=== PATIENT | female | born 1995 | race Caucasian/White ===

== ENCOUNTER 2024-01-25 15:03 | Emergency (ER) | payer BC, SELFPAY ==
[2024-01-25 15:06] VITALS: BP 106/70
--- NOTE | 2024-01-25 16:26 | ED.GENMED ---
History of Present Illness
<Oneida Dotson PA-C - Last Filed: 01/27/24 07:23>
General
Chief Complaint: DVT/Possible Blood Clot
Source: patient
Exam Limitations: none
Time Seen by Provider: 01/25/24 15:38
Nursing documentation reviewed up to this point in time: agreed with
History of Present Illness
History of Present Illness:
Patient is a female at 24 weeks gestation presented to the emergency department with left lower extremity discomfort. Patient reports that she has been dealing with varicose veins in her bilateral lower extremities since 10 weeks in this
. Patient has been following with her CORPORATE SAFETY COORDINATOR who recommended compression stockings. Patient states that over the past few days varicose veins on her left lower extremity have become more 'inflamed 'and lower leg has become more painful.
She has thought she felt some warmth in the area, as well. She did talk to her CORPORATE SAFETY COORDINATOR who recommended she come to the emergency department for an ultrasound to rule out a DVT. Patient denies any chest pain or shortness of breath. No
numbness/tingling in left lower extremity.
Patient denies any personal or family history of blood clots or clotting disorders. thus far has been uncomplicated. No vaginal spotting, loss of fluid, or abdominal cramping.
Past History
<Oneida Dotson PA-C - Last Filed: 01/27/24 07:23>
Past History
ED Past Medical History: None
ED Past Surgical History: None
Social History
Tobacco: Non-smoker
Drug: None
Personal: Single
Employment: Student
Review of Systems
<Oneida Dotson PA-C - Last Filed: 01/27/24 07:23>
Review of Systems
Allergies reviewed?: Yes
All Other Systems: ROS reviewed and negative except as documented in HPI and ROS
Phy Exam
<Oneida Dotson PA-C - Last Filed: 01/27/24 07:23>
Physical Exam
Physical Exam:
Vitals: Patient's vital signs are stable. Afebrile
General: Patient is well appearing, no acute distress
Skin: Warm and dry, no rashes or lesions
Head: Normocephalic, atraumatic
Throat: Protecting airway
Neck: Normal ROM, no cervical spine tenderness
Cardiac: Regular rate and rhythm. Normal heart sounds
Pulm: No apparent respiratory distress. Oxygen saturation 98 on room air. Lungs clear bilaterally.
Abdomen: Gravid abdomen. Nontender.
Extremities: Prominent tender varicose veins of left lower extremity extending from distal calf to mid thigh. Area of most significant tenderness at left lateral proximal calf. No overlying erythema, warmth of left lower extremity. Right lower
extremity with few nontender varicose veins. Negative Homans' sign bilaterally. Bilateral lower extremities neurovascularly intact.
Neuro: Grossly intact
Psychiatric: Normal affect.
Course
<Oneida Dotson PA-C - Last Filed: 01/27/24 07:23>
Orders/Labs/Results
Orders:
Orders
01/25/24 15:09
Periph Venous Lwr Ext Left US [US Periph Venous LOWER Ext LT] Urgent
Comment:
Reason For Exam: ?varicose vein
Vital Signs
Initial and Last Documented VS:
Initial Vital Signs
Temp Pulse Resp BP Pulse Ox
98.6 F 87 18 106/70 98
01/25/24 15:06 01/25/24 15:06 01/25/24 15:06 01/25/24 15:06 01/25/24 15:06
Last Documented Vital Signs
Temp Pulse Resp BP Pulse Ox
98.6 F 87 18 106/70 98
01/25/24 15:06 01/25/24 15:06 01/25/24 15:06 01/25/24 15:06 01/25/24 15:06
<Gee Valdes MD - Last Filed: 01/25/24 19:52>
Orders/Labs/Results
Orders:
Orders
01/25/24 15:09
Periph Venous Lwr Ext Left US [US Periph Venous LOWER Ext LT] Urgent
Comment:
Reason For Exam: ?varicose vein
Vital Signs
Initial and Last Documented VS:
Initial Vital Signs
Temp Pulse Resp BP Pulse Ox
98.6 F 87 18 106/70 98
01/25/24 15:06 01/25/24 15:06 01/25/24 15:06 01/25/24 15:06 01/25/24 15:06
Last Documented Vital Signs
Temp Pulse Resp BP Pulse Ox
98.6 F 87 18 106/70 98
01/25/24 15:06 01/25/24 15:06 01/25/24 15:06 01/25/24 15:06 01/25/24 15:06
<Oneida Dotson PA-C - Last Filed: 01/27/24 07:23>
MDM/Problems Addressed
Differential Diagnosis Includes:
Not limited to: Varicose veins, superficial thrombophlebitis, DVT, etc.
MDM/Problems Addressed:
28-year-old female, at approximately 24 weeks gestation presenting with left lower extremity pain in setting of known varicose veins and concern for possible DVT. Vital stable. Exam as above. Patient does have tender varicose veins of left
lower extremity without any calf tenderness, erythema, warmth. Most notable area at left proximal calf. No palpable cord of left lower extremity. Right lower extremity with few varicose veins. Negative Homans' sign bilaterally. Cardio/pulmonary
assessment unremarkable. An ultrasound was obtained of the left lower extremity which shows no evidence of DVT. However�patent varicose veins of left lower extremity were noted on ultrasound.
Suspect varicose veins progressing secondary to . No evidence of infectious process. No indication for admission. Advised compression stockings, warm compress, elevation when able. Return precautions discussed with patient at length.
Patient will continue to follow with CORPORATE SAFETY COORDINATOR for care. Patient seen with attending physician
Chronic conditions affecting care:
N/A
Acute Exacerbation and/or Progression of Chronic Illness:
N/A
<Oneida Dotson PA-C - Last Filed: 01/27/24 07:23>
*Radiology
Radiology exam reviewed: radiology read reviewed (No evidence of DVT of left lower extremity)
*Pulse Oximetry
Patient hypoxic: no
*EKG
Interpreted by ED Provider?: NA
*Fried Cake Maker Interpretation
Rate: Fried Cake Maker- N/A
*Critical Care Note
Total Time (30-74mins, 75-104mins- exclusive of procedures): Not Applicable
ED Attending Note
<Oneida Dotson PA-C - Last Filed: 01/27/24 07:23>
-
Portions of this chart may have been created with voice recognition software.� Occasional wrong word or��sound alike� substitutions may have occurred due to the inherent limitations of voice recognition software.
<Gee Valdes MD - Last Filed: 01/25/24 19:52>
ED Attending Note
Patient seen and examined by attending physician: Yes
ED Attending Note:
I have seen and evaluated the patient with a [id number] encounter. I have spoken to the advance practicer provider and involved in the medical history, the physical exam, medical decision making.
Evaluation and management service: agree unless noted differently below.
Results interpretation: agree unless noted differently below.
Focused HPI: 28-year-old female G2, P1 24 weeks presents for evaluation of swelling and prominent varicose veins. Patient reports that she has had swelling of both legs during but varicose veins seem quite prominent on the left
leg. She says that her left leg has been aching. She spoke with her AERONAUTICAL DESIGN ENGINEER at was sent to the ER to be evaluated to rule out DVT. Denies chest pain or shortness of breath or any other symptoms.
Physical exam: Awake alert not in distress. Vital signs normal. She has trace edema in the lower extremities, prominent varicose veins particular posteriorly on the left calf and mild localized tenderness. She has good strong left DP and PT pulse.
Medical Decision Makin-year-old female presents with prominent varicose veins in the left leg and swelling in both legs. Vitals and exam as above. Sent for left lower extremity ultrasound which was negative for DVT. Advised to use
compression stockings, elevate, continue with range of motion and activity as tolerated.
Discharge Plan
Departure
Patient Disposition: Home (Routine Discharge)
Date of Disposition: 01/25/24
Time of Disposition: 17:20
Patient with high blood pressure during this ER visit?: No
Condition: Good
Covid-19: Not Applicable
Discharge Problem:
Varicose veins during
Instructions: Varicose Veins (DC)
Prescriptions:
No Action
Vitamin
1 tab PO DAILY
Vitamin D3
1 tab PO DAILY
acetaminophen 325 mg Tablet
650 mg PO Q4HPRN PRN (Reason: mild pain) Qty: 0 0RF
ferrous sulfate [FeroSul] 325 mg (65 mg iron) Tablet
325 mg PO DAILY Qty: 0 0RF
ibuprofen 600 mg Tablet
600 mg PO Q6HPRN PRN (Reason: cramps) Qty: 0 0RF
Activity Restrictions/Additional Instructions:
RETURN TO THE EMERGENCY DEPARTMENT WITH ANY FEVERS, REDNESS/SWELLING OF LOWER LEGS, NUMBNESS/TINGLING IN LOWER LEGS, WORSENING IN PAIN, CHEST PAIN, SHORTNESS OF BREATH, OR ANY OTHER CONCERNS
-As discussed�your ultrasound showed no evidence of a blood clot in your lower leg today. However�there were varicose veins noted. You should continue to wear compression stockings, elevate your legs when able.
-You should follow-up with your CORPORATE SAFETY COORDINATOR for further evaluation/management during her .
Monitor your symptoms closely and return to the emergency department any acute worsening/new symptoms
Interventions
Interventions:
*Risk Screen - Suicide Last Done: 01/25/24 15:06
*General Assessment Last Done: 01/25/24 15:06
*Neglect/Abuse Screening Last Done: 01/25/24 15:06
*ED COVID-19 Vaccine History Last Done: 01/25/24 15:06
*Nursing Disposition Last Done: 01/25/24 17:26
ED- Cardiac Assessment Last Done: 01/25/24 15:32
ED- Pulmonary Assessment Last Done: 01/25/24 15:32
ED-Peripheral Vascular Assessment Last Done: 01/25/24 15:32
ED-Skin Assessment Last Done: 01/25/24 15:32
Discharge Date and Time
Discharge Date/Time: 01/25/24 17:39
Print Language: THAI
== END 2024-01-25 17:39 | disposition home or self-care (01) ==
LOC: EMR 15:03
PROVIDERS: EMERGENCY PHYSICIAN Emergency Medicine; FAMILY PHYSICIAN Internal Medicine
DX: O22.02 Varicose veins of lower extremity in pregnancy, second trimester (principal); O12.02 Gestational edema, second trimester; Z3A.24 24 weeks gestation of pregnancy
CPT/HCPCS: 99284; 93971

== ENCOUNTER → 2024-05-11 15:31 | Outpatient (REF) | payer BC, SELFPAY | LOC: PNTC 15:31 | PROVIDERS: ATTENDING PHYSICIAN Student in an Organized Health Care Education/Training Program | DX: O36.8190 Decreased fetal movements, unspecified trimester, not applicable or unspecified (principal) | CPT/HCPCS: 59025 ==

== ENCOUNTER 2024-05-15 07:59 | Inpatient (IN) | payer BC, SELFPAY ==
[2024-05-15 08:03] VITALS: BMI 31.1
[2024-05-15 08:06] VITALS: BP 108/71
[2024-05-15] MEDS: LR 1000 IV (09:04)
[2024-05-15 09:21] LABS: % Basophils 0.3 % (0-2); % Eosinophils 0.7 % (0-6); % Immature Granulocytes 0.7 % (0-0.5); % Lymphocytes 22.1 % (20.5-51.1); % Monocytes 7.7 % (1.7-9.3); % Neutrophils 68.5 % (42.2-75.2); Absolute Eosinophils 0.1 10^3/uL (0-0.7); Absolute Immature Granulocytes 0.1 10^3/uL (0-0.05); Absolute Lymphocytes 1.6 10^3/uL (1.2-3.4); Absolute Monocytes 0.6 10^3/uL (0.1-0.6); Hematocrit 35.8 % (37.0-47.0); Hemoglobin 12.4 g/dL (12.0-16.0); Mean Corp Hgb Conc. 34.6 g/dL (33.0-37.0); Mean Corpuscular Hgb 32.6 pg (27.0-31.0); Mean Corpuscular Volume 94.2 fL (81.0-99.0); Mean Platelet Volume 10.6 fL (7.4-10.4); Nucleated Red Blood Cells % 0 %; Platelet Count 269 10^3/uL (130-400); Red Cell Dist. Width 12.7 % (11.5-14.5); White Blood Cell Count 7.3 10^3/uL (4.8-10.8)
[2024-05-15] MEDS: PITOCIN 30 UNITS/NSS 500 ML IV ×2 (11:46→21:45)
[2024-05-15] MEDS: BICITRA 30 ML PO (20:25)
[2024-05-15] MEDS: TYLENOL 1000 MG PO (20:25)
[2024-05-15] MEDS: ANCEF 10 IV (20:46)
[2024-05-16] MEDS: TORADOL 15 MG IV ×4 (03:04→21:47)
[2024-05-16 05:17] LABS: Hematocrit 31.9 % (37.0-47.0); Hemoglobin 10.9 g/dL (12.0-16.0); Mean Corp Hgb Conc. 34.2 g/dL (33.0-37.0); Mean Corpuscular Hgb 32.4 pg (27.0-31.0); Mean Corpuscular Volume 94.9 fL (81.0-99.0); Mean Platelet Volume 10.6 fL (7.4-10.4); Platelet Count 243 10^3/uL (130-400); Red Blood Cell Count 3.36 10^6/uL (4.20-5.40); Red Cell Dist. Width 12.7 % (11.5-14.5); White Blood Cell Count 12.7 10^3/uL (4.8-10.8)
--- NOTE | 2024-05-16 08:08 | W.PN.ANS.POP ---
Anesthesia Post Operative
- Anesthesia Post Op Note
Vital Signs Stable-See Nursing Note: Yes
Airway Patent: Yes
Adequate Pain Control: Yes
Change in Mental Status: No
Current Postoperative Nausea & Vomiting: No
Anesthesia Complications: No
General Anesthetic Recall: No
Unplanned Admission: No
Post Op Hydration Adequate: Yes
[2024-05-16] MEDS: PRENATAL PLUS 1 TABLET PO (08:35)
[2024-05-16] MEDS: SENOKOT-S 1 TABLET PO (08:35)
[2024-05-16 12:21] LABS: Syphilis/T. pallidum Ab Reflex Negative (Negative)
[2024-05-16] MEDS: FLUSH (NSS) 3 FLUSH IV (21:49)
[2024-05-16] MEDS: TUMS CHEWABLE TABLET 400 MG PO (21:53)
--- NOTE | 2024-05-17 02:49 | DOWNTIME ---
There was a [employer] Client Am[employer]ia Refrigeration Technician Downtime on 05/17/2024 from 0100 to 05/17/2023 at 0235 . Downtime documentation of patient's care, including medication administrations, has been reconciled in the electronic record per guidelines. Refer to the
patient's paper chart under the miscellaneous tab to see printed paper medication records and downtime forms.
[2024-05-17] MEDS: MOTRIN 600 MG PO ×2 (06:20→11:26)
[2024-05-17] MEDS: PRENATAL PLUS 1 TABLET PO (07:54)
[2024-05-17] MEDS: SENOKOT-S 1 TABLET PO (07:54)
--- NOTE | 2024-05-17 09:09 | W.DS.TRANS ---
DC Summary - Territory Service Representative
-
Discharge Instructions:
Discharge Diagnosis/Procedures 40wks delivered via repeat
section, failed trial of labor after
section, macrosomia, pitocin induction of
labor
Diet No restrictions
Activity No strenuous activity
Driving Restrictions No driving for 2 weeks
Bathing Restrictions OK to Shower
Instructions:
Stand-Alone Forms: LDRP Delivery
Changes to Home Medications: Yes
Discharge Medications:
DC Medications w/original date entered in [employer]
Vitamin 1 tab PO DAILY Supplement 04/24/22
Vitamin D3 1 tab PO DAILY Supplement 04/24/22
iron 325 mg PO Q OTHER DAY 05/16/24
vit B cmplx #[id number] 1 tab PO DAILY 05/16/24
acetaminophen 325 mg tablet 650 mg (2 x 325 mg) PO Q4HPRN PRN mild pain #1 tab 05/17/24
ibuprofen 600 mg tablet 600 mg PO Q6HPRN PRN cramps #60 tabs 05/17/24
Home Medication Changes
Pending Results: No
Total time spent discharging patient (in min): 30
[2024-05-17] MEDS: TYLENOL 650 MG PO (11:26)
== END 2024-05-17 12:11 | disposition home or self-care (01) | DRG 788 ==
LOC: LDRP 07:59
PROVIDERS: ADMITTING PHYSICIAN Obstetrics & Gynecology
PROC: 10D00Z1 Extraction of Products of Conception, Low, Open Approach (ICD-10-PCS; 2024-05-15)
PROC: 0HB7XZZ Excision of Abdomen Skin, External Approach (ICD-10-PCS; 2024-05-15)
PROC: 3E033VJ Introduction of Other Hormone into Peripheral Vein, Percutaneous Approach (ICD-10-PCS; 2024-05-15)
DX: O48.0 Post-term pregnancy (principal); O62.2 Other uterine inertia; O34.211 Maternal care for low transverse scar from previous cesarean delivery; N85.8 Other specified noninflammatory disorders of uterus; Z3A.40 40 weeks gestation of pregnancy; Z37.0 Single live birth; O87.4 Varicose veins of lower extremity in the puerperium; I83.90 Asymptomatic varicose veins of unspecified lower extremity; L91.0 Hypertrophic scar; O61.9 Failed induction of labor, unspecified; O66.41 Failed attempted vaginal birth after previous cesarean delivery; Z88.1 Allergy status to other antibiotic agents; Z88.2 Allergy status to sulfonamides
CPT/HCPCS: 88307; 36415; 85025; 85027; 86780; 86850; 86900; 86901

== ENCOUNTER 2024-05-22 15:56 | Emergency (ER) | payer BC, SELFPAY ==
[2024-05-22 15:59] VITALS: BP 122/83
--- NOTE | 2024-05-22 17:02 | ED.GENMED ---
History of Present Illness
General
Chief Complaint: DVT/Possible Blood Clot
Source: patient
Time Seen by Provider: 05/22/24 16:16
History of Present Illness
History of Present Illness:
This patient is a 28-year-old female with a history of varicose veins, 1 week status post who states for the last few days she has noted discomfort at the lateral aspect of her left knee extending superiorly in a linear pattern
with associated faint redness and palpable 'hard'. She has been taking Motrin with partial relief of symptoms, last dose 4 hours ago. She denies chest pain, shortness of breath, fever, chills, swelling, or other complaints.
Past History
Past History
ED Past Medical History: None
ED Past Surgical History: None
Social History
Tobacco: Non-smoker
Alcohol: None
Drug: None
Personal: Single
Living: with family
Employment: Student
Phy Exam
Physical Exam
Physical Exam:
GENERAL: Alert , in no apparent distress
EYE: pupils equal
NECK: Supple
ENT: mmm.
CARDIAC: Regular rate and rhythm .
LUNGS: Clear breath sounds bilaterally, no acute respiratory distress, no wheezes/rales/rhonchi
ABDOMEN: Soft, without focal tenderness
NEUROLOGICAL: Alert and oriented, no focal neuro deficits
SKIN: Warm and dry, skin intact.
MUSCULOSKELETAL: No edema, well perfused. There is a palpable 'cord' at lateral aspect mid/inferior thigh on L with faint erythema, no fluctuance/crepitus/induration. No calf ttp, neg Jeff's
PSYCH: Normal and appropriate interaction.
Course
Orders/Labs/Results
Orders:
Orders
05/22/24 15:57
Venous Doppler Lwr Ext Left [US Periph Venous LOWER Ext LT] Urgent
Comment:
Reason For Exam: pain
Vital Signs
Initial and Last Documented VS:
Initial Vital Signs
Temp Pulse Resp BP Pulse Ox
98.0 F 61 18 122/83 98
05/22/24 15:59 05/22/24 15:59 05/22/24 15:59 05/22/24 15:59 05/22/24 15:59
Last Documented Vital Signs
Temp Pulse Resp BP Pulse Ox
98.0 F 61 18 122/83 98
05/22/24 15:59 05/22/24 15:59 05/22/24 15:59 05/22/24 15:59 05/22/24 15:59
*Critical Care Note
Total Time (30-74mins, 75-104mins- exclusive of procedures): Not Applicable
Update Note
Update Note:
Patient presents to the Emergency Department with leg pain____
Number and Complexity of Problems Addressed at the Encounter
� Chronic conditions affecting care:
� Acute Exacerbation and/or Progression of Chronic Illness:
� Differential Diagnosis includes: But not limited to superficial thrombophlebitis, DVT, etc.
Amount and/or Complexity of Data to be Reviewed and Analyzed
� I performed an independent evaluation of and my interpretation is:
EKG:
CT:
Xrays:
Laboratory Studies:
Other:No evidence for deep venous thrombosis.
2. Superficial occlusive thrombosis of varicose veins in the lateral left thigh and calf.
� Review of other/old records reveals:
� Clinical information was obtained by an independent historian:
� Prescriptions/Medications Considered but not given:
� Further testing considered but not performed:
Risk of Complications and/or Morbidity or Mortality of Patient Management
� Social determinants of health affecting care:
� Discussion with other providers (PCP, Hospitalists, Consultants, etc):
� Escalation of care including admission/observation vs risk of discharge considered: Ultrasound not consistent with DVT but rather superficial thrombophlebitis. Precautions given to patient as well as importance of follow-up
and reasons return to ER.
ED Attending Note
-
Portions of this chart may have been created with voice recognition software.� Occasional wrong word or��sound alike� substitutions may have occurred due to the inherent limitations of voice recognition software.
Discharge Plan
Departure
Patient Disposition: Home (Routine Discharge)
Date of Disposition: 05/22/24
Time of Disposition: 17:33
Patient with high blood pressure during this ER visit?: Yes
Condition: Good
Discharge Problem:
Superficial thrombophlebitis
Instructions: Superficial vein phlebitis and thrombosis, BLOOD PRESSURE
Prescriptions:
No Action
Vitamin
1 tab PO DAILY
Vitamin D3
1 tab PO DAILY
iron
325 mg PO Q OTHER DAY
vit B cmplx #[id number],E
1 tab PO DAILY
acetaminophen 325 mg Tablet
650 mg PO Q4HPRN PRN (Reason: mild pain) Qty: 1 0RF
ibuprofen 600 mg Tablet
600 mg PO Q6HPRN PRN (Reason: cramps) Qty: 60 0RF
Activity Restrictions/Additional Instructions:
PLEASE TAKE ANTI-INFLAMMATORY SUCH MOTRIN DIRECTED FOR YOUR SYMPTOMS. IF YOU DEVELOP CHEST PAIN, SHORTNESS OF BREATH, PERSISTENT NEW OR WORSENING PAIN OR SWELLING, NUMBNESS, WEAKNESS, OR OTHER WORRISOME SIGNS, PLEASE RETURN TO THE ER
IMMEDIATELY.
Interventions
Interventions:
*Risk Screen - Suicide Last Done: 05/22/24 15:59
*Neglect/Abuse Screening Last Done: 05/22/24 15:59
Discharge Date and Time
Print Language: SAO TOMEAN
[2024-05-22 18:15] VITALS: BP 118/77
== END 2024-05-22 18:25 | disposition home or self-care (01) ==
LOC: EMR 15:56
PROVIDERS: EMERGENCY PHYSICIAN Emergency Medicine; FAMILY PHYSICIAN Internal Medicine
DX: I80.9 Phlebitis and thrombophlebitis of unspecified site (principal); R03.0 Elevated blood-pressure reading, without diagnosis of hypertension
CPT/HCPCS: 99284; 93971